=== PATIENT | male | born 1955 | race Caucasian/White ===

== ENCOUNTER 2019-09-19 21:19 | Inpatient (IN) | payer MEDICAID, OTHER ==
[~2019-09-19] VITALS: Ht 172.7 cm; Wt 63.0 kg
[~2019-09-19 21:19] MED LIST: NORPTMEDS CO
[2019-09-19 22:08] LABS: Eosinophils # (auto) 0 10 ^3/uL (0-0.8); White Blood Cell 10.8 10^3/uL (4.4-10.8)
[2019-09-19 22:10] LABS: Basophils # (auto) 0 10 ^3/uL (0-0.2); Basophils % (auto) 0.3 % (0.0-2.0); Hematocrit 50.6 % (41.0-53.0); Hemoglobin 15.8 g/dL (13.5-17.5); Lymphocytes % (auto) 9.6 % (10.0-50.0); Mean Corpuscular Hemoglobin 32.6 pg (28.0-32.0); Mean Corpuscular Hgb Conc. 31.3 g/dL (32.0-36.0); Mean Corpuscular Volume 104.3 fL (80.0-100.0); Monocytes # (auto) 1.6 10 ^3/uL (0-1.3); Monocytes % (auto) 14.6 % (0.0-12.0); Neutrophils # (auto) 8.1 10 ^3/uL (1.6-8.6); Neutrophils % (auto) 75.5 % (37.0-80.0); Platelet Count (auto) 159 10^3/uL (140-450); Red Blood Cells 4.85 10^6/uL (4.5-5.90); Red Cell Distribution Width 16.8 % (11.8-14.3)
[2019-09-19 22:25] LABS: Albumin 2.9 g/dL (3.4-5.0); BUN/Creatinine Ratio 10.8; Calcium 8.7 mg/dL (8.5-10.1); Magnesium 2.6 mg/dL (1.6-2.6); Potassium 4.5 mmol/L (3.5-5.1)
[2019-09-19 22:29] LABS: Salicylate < 1.7 mg/dL (2.8-20.0)
[2019-09-19 22:30] LABS: Bilirubin, Total 0.6 mg/dL (0.2-1.0); Total Protein 7.4 g/dL (6.4-8.2)
[2019-09-19 22:32] LABS: Acetaminophen < 2.0 ug/mL (10-30)
[2019-09-19 23:46] LABS: INR 1.13 (0.9-1.15); Partial Thromboplastin Time 31.2 sec (23.64-32.05)
[2019-09-19 23:57] LABS: Urine Amorphous Crystal FEW /hpf (None Seen); Urine Bacteria FEW /hpf (None Seen); Urine Blood 2+ /uL (Negative); Urine Hyaline Cast FEW /lpf (0 - 2); Urine Specific Gravity 1.009 (1.001-1.035); Urine WBC 3 /hpf (0 - 3)
[2019-09-20] MEDS ORDERED: SODIUM BICARBONATE 50ML VIAL 50 ML in SOD CHL 0.45% 1,000 ML IV ONE ×2
[2019-09-20 00:19] LABS: Amphetamine Screen, Urine NEGATIVE (NEGATIVE); Barbiturate Scree,Urine NEGATIVE (NEGATIVE); Benzodiazephine Screen, Urine NEGATIVE (NEGATIVE); Cannabinoid Screen, Urine NEGATIVE (NEGATIVE); Cocaine Screen, Urine NEGATIVE (NEGATIVE); Opiate Scree,Urine POSITIVE (NEGATIVE); Phencyclidine Screen, Urine NEGATIVE (NEGATIVE)
[2019-09-20] MEDS ORDERED: ENOXAPARIN SOD 30 MG/0.3 ML SYRINGE IV ONE (00:30)
[2019-09-20] MEDS ORDERED: SODIUM BICARBONATE 8.4 % INJ 50ML VIAL IV ONE ×3 (00:53)
[2019-09-20] MEDS ORDERED: SODIUM CHLORIDE 0.9% 1,000 ML IV ONE (01:00)
[2019-09-20] MEDS ORDERED: SODIUM CHLORIDE 0.9% 1,000 ML IV SCH (02:45)
[2019-09-20] MEDS ORDERED: ONDANSETRON HCL 4 MG/2 ML VIAL IV PRN (02:45)
[2019-09-20] MEDS ORDERED: NITROGLYCERIN 0.4 MG SL TAB SL PRN (03:00)
[2019-09-20] MEDS ORDERED: MORPHINE SULF INJ 2 MG/ML SYRINGE 1ML IV PRN (03:00)
[2019-09-20 03:16] LABS: Albumin 2.5 g/dL (3.4-5.0); Calcium 8.1 mg/dL (8.5-10.1); Potassium 4.6 mmol/L (3.5-5.1)
[2019-09-20 03:20] LABS: BUN/Creatinine Ratio 12.6; Bilirubin, Total 0.7 mg/dL (0.2-1.0); Total Protein 6.2 g/dL (6.4-8.2)
[2019-09-20] MEDS: ENOXAPARIN SOD 60 MG/0.6 ML SYRINGE SC SCH ×2 (03:32→15:45)
[2019-09-20] MEDS ORDERED: SODIUM CHLORIDE 0.9% 500 ML IV ONE (07:30)
--- NOTE | 2019-09-20 08:40 | NUR ---
Admit to [facility] Vadmitted to [facility] via jarrell on heddler tier, and portable 02. Patient transferred to bed, connected to unit monitoring and oxygen at 2L NC, and weighed by bedscale. Patient oriented to FADIA OBRIEN, primary RN, unit, room, bed, and unit policies regarding patient care and visiting hours. Patient with see draining clear yellow UOP. IVF of 0.45NS + 1amp Bicarb infusing at 50ml/hr. All questions and concerns addressed, patient verbalized understanding. VSS: 153/95, 105, 18, 94% on 2L NC, 99.1
[2019-09-20] MEDS: SODIUM CHLORIDE 0.9% 1,000 ML IV SCH (08:45)
[2019-09-20 09:30] VITALS: BP 153/95
[2019-09-20] MEDS: LACTULOSE 20Gm/30ML SOLN PO SCH (10:26)
[2019-09-20] MEDS: ASPirin 81 mg TAB PO SCH (10:26)
[2019-09-20] MEDS: PANTOPRAZOLE 40 MG TAB PO SCH (10:27)
[2019-09-20 11:45] VITALS: BP 151/82
--- NOTE | 2019-09-20 11:45 | NUR ---
neurophysiology tech at bedside.
--- NOTE | 2019-09-20 11:51 | NUR ---
Critical Lab Result: Troponin 6.670. Message left at [facility] for Dr Rubin.
[2019-09-20 15:45] VITALS: BP_SYST 140; BP_SYST 151; BP_DIAS 82
--- NOTE | 2019-09-20 17:15 | NUR ---
T/C from Dr Zafar. Orders received for labs. MD to see patient tomorrow.
--- NOTE | 2019-09-20 17:42 | NUR ---
T/C to patient's daughter, Shima Infante. Provided daughter password set up by patient per his request. Updated daughter on patient's plan of care, to include tomorrow's stress test and nephrology consult.
[2019-09-20 18:38] LABS: Protein, Urine 72.7 mg/dL (0.0-11.9)
[2019-09-20 18:42] LABS: Alcohol, Urine < 3.0 mg/dL (0-5); Amphetamine Screen, Urine NEGATIVE (NEGATIVE); Barbiturate Scree,Urine NEGATIVE (NEGATIVE); Benzodiazephine Screen, Urine NEGATIVE (NEGATIVE); Cannabinoid Screen, Urine NEGATIVE (NEGATIVE); Cocaine Screen, Urine NEGATIVE (NEGATIVE); Opiate Scree,Urine POSITIVE (NEGATIVE); Phencyclidine Screen, Urine NEGATIVE (NEGATIVE)
--- NOTE | 2019-09-20 18:56 | NUR ---
CLOSING SHIFT NOTE: Patient resting in bed, no s/s of distress. Patient remains connected to bedside monitor with alarms in place. Sitter 1:1 for safety due to suicide risk. Patient remains NPO. Plan for stress test tomorrow morning. Patient with IVF infusing to left AC #20 of NS @ 65ml/hr and 0.45NS + 1 amp BiCarb at 50ml/hr. Leigh draining jamin urine. Bed in lowest position, rails x2 up and call light within reach. Report to be given to CURTIS MCINTYRE.
[2019-09-20 19:58] VITALS: BP 154/78
--- NOTE | 2019-09-20 20:56 | NUR ---
RECEIVED PT ON SUPINE POSITION IN NO ACUTE RESP DISTREE AND NO C/O PAIN. ON SR WITHOUT ECTOPY. REPOSITIONED.. ORAL CARE DONE. HOB UP 45 DEGREE
--- NOTE | 2019-09-20 20:56 | NUR ---
ASHOK MCINTYRE [facility] GAVE ME REPORT
[2019-09-20] MEDS: ATORVASTATIN 20 MG TAB PO SCH (21:39)
--- NOTE | 2019-09-20 23:55 | NUR ---
BP [id number] WAS 179/86, AT 2350 BP-170/83, AND AT 2354-169/84. tHE HOSPITALIST WAS CALLED TO INFORM THE HIGH bP. hE IS ANXIOUS SINCE 1900
--- NOTE | 2019-09-20 23:58 | NUR ---
AT 2200, REMAINS AWAKE AND ANXIOUS. ON SR . NO C/O OF PAIN
[2019-09-21] VITALS (7 sets, daily range): BP systolic 129–180; BP diastolic 72–108
[2019-09-21] MEDS: SODIUM CHLORIDE 0.9% 1,000 ML IV SCH (00:04)
--- NOTE | 2019-09-21 00:54 | NUR ---
0015 ORTEGAnp CALLED AND IFORM PT ANXIETY AND REMAINS AWAKE AND bp WAS HIGH AND ORDERED TEMAZEPAM 15 PO NOW
[2019-09-21] MEDS ORDERED: TEMAZEPAM 15 MG CAP PO ONE (01:00)
[2019-09-21] MEDS ORDERED: TEMAZEPAM 15 MG CAP ONE (01:01)
--- NOTE | 2019-09-21 01:12 | NUR ---
AT 0101 TEMAZEPAM OE RESTORIL 15 GIVEN FOR INSOMNIA AND RESTLESSNESS
--- NOTE | 2019-09-21 01:54 | NUR ---
AT 0200 PT DESATURATES BECAUSE HE IS ASLEEP AND ALSO THE O2 IS OFF SO O2 PUT IT BACK
[2019-09-21] MEDS: ENOXAPARIN SOD 60 MG/0.6 ML SYRINGE SC SCH (03:10)
[2019-09-21 03:40] LABS: Basophils # (auto) 0 10 ^3/uL (0-0.2); Basophils % (auto) 0.2 % (0.0-2.0); Eosinophils # (auto) 0 10 ^3/uL (0-0.8); Eosinophils % (auto) 0.1 % (0.0-7.0); Hematocrit 36.4 % (41.0-53.0); Hemoglobin 12.5 g/dL (13.5-17.5); Lymphocytes # (auto) 1.4 10 ^3/uL (0.4-5.4); Lymphocytes % (auto) 24.7 % (10.0-50.0); Mean Corpuscular Hemoglobin 32.4 pg (28.0-32.0); Mean Corpuscular Hgb Conc. 34.3 g/dL (32.0-36.0); Mean Corpuscular Volume 94.7 fL (80.0-100.0); Monocytes # (auto) 0.8 10 ^3/uL (0-1.3); Monocytes % (auto) 14.2 % (0.0-12.0); Neutrophils # (auto) 3.4 10 ^3/uL (1.6-8.6); Neutrophils % (auto) 60.8 % (37.0-80.0); Nucleated Red Blood Cells % 0.4 %; Platelet Count (auto) 79 10^3/uL (140-450); Red Blood Cells 3.85 10^6/uL (4.5-5.90); Red Cell Distribution Width 14.5 % (11.8-14.3); White Blood Cell 5.7 10^3/uL (4.4-10.8)
[2019-09-21 03:58] LABS: Phosphorus 3.2 mg/dL (2.5-4.90); Uric Acid 10.8 mg/dL (3.5-7.2)
--- NOTE | 2019-09-21 05:24 | NUR ---
PT. SLEEPING QUOIETLY
--- NOTE | 2019-09-21 06:15 | NUR ---
SUICIDAL PRECAUTION. CLOSELY MONITORED
--- NOTE | 2019-09-21 07:30 | NUR ---
REPORT RECEIVED FROM TALENT ACQUISITION OPERATIONS MANAGER NURSE. PATIENT RESTING IN BED AT THIS TIME. RESPIRATIONS EVEN AND UNLABORED. NO SIGNS OF ACUTE DISTRESS NOTED. SITTER AT BEDSIDE FOR PATIENT SAFETY DUE TO SUICIDAL ATTEMPT. BED IN LOW POSITION, CALL LIGHT A IN REACH. WELL CONTINUE TO MONITOR.
[2019-09-21 07:44] LABS: Albumin 2.2 g/dL (3.4-5.0); Potassium 4.5 mmol/L (3.5-5.1)
[2019-09-21 07:48] LABS: BUN/Creatinine Ratio 25.5; Bilirubin, Total 0.8 mg/dL (0.2-1.0); Total Protein 5.3 g/dL (6.4-8.2)
[2019-09-21] MEDS ORDERED: ADENOSINE 54 MG in GIVE UN-DILUTED 0 ML IV ONE (08:30)
[2019-09-21 10:04] LABS: Hepatitis B Surface Antigen Negative (Negative)
[2019-09-21 10:05] LABS: Hepatitis C Antibody Positive (Negative)
--- NOTE | 2019-09-21 10:25 | NUR ---
LEFT MESSAGE FOR DR DAVIES TO INFORM OF PATIENTS INCREASED BLOOD PRESSURES SYSTOLICS IN THE 170-180'S. AWAITING CALL BACK.
--- NOTE | 2019-09-21 10:26 | NUR ---
PATIENT LEFT FOR CARDIOLITE VIA WHEELCHAIR CONNECTED TO PORTABLE MONITOR AND OXYGEN ACCOMPANIED BY RADIOLOGY NURSE.
--- NOTE | 2019-09-21 10:36 | NUR ---
SPOKE TO DR DAVIES ABOUT PATIENTS BLOOD PRESSURE. PER MD START PATIENT ON PROCARDIA 10MG PO TID PRN FOR SBP GREATER THAN 160.
[2019-09-21] MEDS ORDERED: NIFEdipine 10 MG CAP PO PRN (11:00)
[2019-09-21] MEDS ORDERED: ERGOCALCIFEROL 50,000 UNIT(1.25MG) CAP PO SCH (11:30)
--- NOTE | 2019-09-21 11:38 | NUR ---
PATIENT RETURNED FROM CARDIOLITE VIA WHEELCHAIR CONNECTED TO PORTABLE MONITOR AND OXYGEN. PATIENT PLACED ON BEDSIDE MONITOR BY RADIOLOGY NURSE AND SUPPLY CHAIN SPECIALIST WHO WAS COVERING PRIMARY NURSES LUNCH AT THE TIME OF PATIENT RETURN.
[2019-09-21] MEDS: LACTULOSE 20Gm/30ML SOLN PO SCH (12:45)
[2019-09-21] MEDS: PANTOPRAZOLE 40 MG TAB PO SCH (12:46)
[2019-09-21] MEDS: ASPirin 81 mg TAB PO SCH (12:46)
--- NOTE | 2019-09-21 12:46 | NUR ---
ADMINISTERED PROCARDIA PER MD ORDER FOR SBP GREATER THAN 160. PATIENTS CURRENT BLOOD PRESSURE 180/108. WILL CONTINUE TO MONITOR.
--- NOTE | 2019-09-21 12:50 | NUR ---
RHYTHM CHANGE PATIENT NOTED TO HAVE INCREASED HEART RATE IN 160-170'S IRREGULAR. EKG PERFORMED AND PATIENT NOTED TO BE IN A FIB RVR. PAGED DR DAVIES AWAITING CALL BACK.
--- NOTE | 2019-09-21 13:12 | NUR ---
SPOKE TO DR DAVIES ABOUT PATIENTS A FIB RVR. PER MD ADMINISTER DIGOXIN IVP X 2 DOSES OF 0.25MG. ONE NOW AND ONE DOSE 2 HOURS AFTER FIRST DOSE. ALL ORDERS NOTED IN CHART.
[2019-09-21] MEDS ORDERED: METOPROLOL TARTRATE 1MG/1ML-5ML VIAL IV ONE (13:15)
[2019-09-21] MEDS ORDERED: amLODIPine BESYLATE 5 MG TAB PO ONE (13:15)
[2019-09-21] MEDS ORDERED: DIGOXIN (250MCG/ML) 2 ML AMPULE IV ONE ×2 (13:15→15:30)
--- NOTE | 2019-09-21 13:15 | NUR ---
DR RESTREPO AT BEDSIDE TO ASSESS PATIENT AND DISCUSS PLAN OF CARE. AWARE OF DR SEGOVIA ORDERS FOR PATIENTS CURRENT HEART RATE. ALL ORDERS NOTED IN CHART FROM DR RESTREPO.
[2019-09-21] MEDS ORDERED: DIGOXIN (250MCG/ML) 2 ML AMPULE ONE (13:18)
--- NOTE | 2019-09-21 13:30 | NUR ---
REASSESSED PATIENT BLOOD PRESSURE, CURRENTLY 116/59. WILL CONTINUE TO MONITOR.
--- NOTE | 2019-09-21 14:14 | NUR ---
DR DAVIES AT BEDSIDE TO ASSESS PATIENT AND DISCUSS PLAN OF CARE. PER MD DO NOT ADMINISTER METOPROLOL IVP AT THIS TIME. START PATIENT ON PO METOPROLOL NOTED IN CHART AND THEN GIVE SECOND DOSE OF DIGOXIN IVP PREVIOUSLY ORDERED. PER MD STRESS TEST NEGATIVE.
--- NOTE | 2019-09-21 15:44 | NUR ---
PER PHARMACIST SPOKE WITH DR RESTREPO ABOUT PATIENTS PLATELET LEVEL AND LOVENOX ORDER. PER MD GIVE 1 FINAL DOSE TODAY. ALL ORDERS NOTED BY PHARMACY.
[2019-09-21] MEDS ORDERED: ENOXAPARIN SOD 60 MG/0.6 ML SYRINGE SC ONE ×2 (15:45→22:00)
[2019-09-21] MEDS: ATORVASTATIN 20 MG TAB PO SCH (21:53)
[2019-09-21] MEDS: METOPROLOL TARTRATE 50 MG TAB PO SCH (21:53)
[2019-09-21] MEDS ORDERED: METOPROLOL TARTRATE 25 MG TAB PO SCH (22:00)
[2019-09-21] MEDS ORDERED: ENOXAPARIN SOD 60 MG/0.6 ML SYRINGE SC SCH (22:00)
[2019-09-22 03:22] LABS: Basophils # (auto) 0 10 ^3/uL (0-0.2); Basophils % (auto) 0.8 % (0.0-2.0); Eosinophils # (auto) 0 10 ^3/uL (0-0.8); Eosinophils % (auto) 0.4 % (0.0-7.0); Hematocrit 42.6 % (41.0-53.0); Hemoglobin 14.3 g/dL (13.5-17.5); Lymphocytes % (auto) 18.2 % (10.0-50.0); Mean Corpuscular Hgb Conc. 33.6 g/dL (32.0-36.0); Mean Corpuscular Volume 95.1 fL (80.0-100.0); Monocytes # (auto) 0.5 10 ^3/uL (0-1.3); Monocytes % (auto) 8.9 % (0.0-12.0); Neutrophils # (auto) 3.9 10 ^3/uL (1.6-8.6); Neutrophils % (auto) 71.7 % (37.0-80.0); Nucleated Red Blood Cells % 0.3 %; Platelet Count (auto) 88 10^3/uL (140-450); Red Blood Cells 4.48 10^6/uL (4.5-5.90); Red Cell Distribution Width 14.6 % (11.8-14.3); White Blood Cell 5.5 10^3/uL (4.4-10.8)
[2019-09-22 03:44] LABS: Albumin 2.2 g/dL (3.4-5.0); Calcium 7.8 mg/dL (8.5-10.1); Potassium 3.7 mmol/L (3.5-5.1)
[2019-09-22 03:47] LABS: Bilirubin, Total 1.5 mg/dL (0.2-1.0); Total Protein 5.9 g/dL (6.4-8.2)
[2019-09-22 04:00] VITALS: BP 142/94
[2019-09-22 07:40] VITALS: BP 137/93
[2019-09-22] MEDS ORDERED: ASPirin 81 mg TAB PO SCH (10:00)
[2019-09-22] MEDS ORDERED: amLODIPine BESYLATE 5 MG TAB PO SCH (10:00)
--- NOTE | 2019-09-22 10:00 | NUR ---
Held scheduled Amlodipine and Metoprolol secondary to BP 106/69, Will contact Dr. Rubin
[2019-09-22] MEDS: LACTULOSE 20Gm/30ML SOLN PO SCH (10:27)
[2019-09-22] MEDS: PANTOPRAZOLE 40 MG TAB PO SCH (10:28)
[2019-09-22] MEDS: METOPROLOL TARTRATE 50 MG TAB PO SCH (10:30)
--- NOTE | 2019-09-22 11:36 | NUR ---
Resumed care at 0725, orders reviewed and ongoing assessments being done. Being treated for multiple problems as well with suicide ideation. Upon arrival awake and interacting appropriately and able to make needs known. Can participate with self care. One to one sitter at bedside secondary to suicide ideation. Interacting appropriately and not opening up regarding above. Status post stress test and remains in AFIB with a control rate in the 80's.
[2019-09-22 11:40] VITALS: BP 116/77
--- NOTE | 2019-09-22 12:00 | NUR ---
Dr. Lemus rounded at 1200. Discussed condition and plan of care.
--- NOTE | 2019-09-22 14:21 | NUR ---
Nutrition Assessment Notes please see attached link fo complete assessment Est Energy needs BW 64 [id number] kcals (25-30 kcal/kgBW), Est Protein needs: 64-70 gms/day (1.1-1.1 gm/kgBW r/t elev RFT severe hypoalb). Will continue to monitor and reassess prn. Addendum: 09/22/19 at [address] Amended: Links added.
[2019-09-22 15:50] VITALS: BP 124/88
--- NOTE | 2019-09-22 15:58 | NUR ---
Resting quietly in bed and one to one sitter remains at bedside. Reviewed plan of care regarding consult for TELE Psych. Agreed and TELE Psych arranged and completed.
--- NOTE | 2019-09-22 16:17 | NUR ---
Contacted Dr. Rubin and made him aware of medications that were held this am. Reviewed medications and discussed plan of care. Orders obtained.
[2019-09-22] MEDS ORDERED: CHOLECALCIFEROL (VITD3) 1,000IU=25mCg TAB PO ONE (16:45)
--- NOTE | 2019-09-22 17:11 | NUR ---
Assessment Patient is a 64-year-old male who is alert and oriented. Prior to admission patient lived home alone and function independently. Patient informed me he can care for his own ADLs. Patient stated he does not need any medical equipment now. Per patient he receives SSI with an amount of [id number]. Per patient he will return home to his prior living arrangements post discharge and he will need a taxi voucher. Advised patient there is a social service consult for heavy ETOH use and mixed pills while drinking. Offered patient resources for substance abused. Patient accepted resources. Patient informed he does not have health insurance. Informed patient he will be refer to Jordon who will assist with [employer]. Informed patient he has a right to participate in all discharge planning. Patient verbalized understanding and agreed to discharge plan home. Informed JAYME Saab regarding no insurance. JAYME Saab informed me per Jordon [facility] is secure. Addendum: 09/22/19 at 1711 by SANDY INGRAM Amended: Links added.
--- NOTE | 2019-09-22 17:46 | NUR ---
Dr. Lemus placed orders at 1645, okay to transfer to TELE floor. Ordered abdominal US. Will be done tomorrow since patient has to be NPO for 8 hours and ate lunch.
[2019-09-22] MEDS ORDERED: RIVAROXABAN 20 MG TAB PO SCH (18:00)
--- NOTE | 2019-09-22 18:22 | NUR ---
In bed eating dinner in no acute distress. No behavioral changes, has been interacting appropriately with no emotional outburst. Remains in AFIB with a control rate.
--- NOTE | 2019-09-22 20:00 | NUR ---
Received report from Petty MCINTYRE, pt stable at time of report. Report called to Elida MCINTYRE. Will transfer pt to [facility] when tele box made available.
[2019-09-22] MEDS: AMIODARONE HCL 200 MG TAB PO SCH (20:55)
[2019-09-22] MEDS: ATORVASTATIN 20 MG TAB PO SCH (20:56)
--- NOTE | 2019-09-22 20:59 | NUR ---
Pt transferred to Room 285 via bed by Tatiana MCINTYRE. Pt alert and oriented at time of transfer. Pt placed on portable tele box and hooked up to O2 when situated in room. All belongings and toiletries transferred with patient. Notified RN pt is now in room. Care endorsed.
--- NOTE | 2019-09-22 21:00 | NUR ---
Assumed care patient sitting up in bed, awake and alert, oriented x 4. on 2L via NC with even and unlabored respirations, no s/s of distress. patient turns independently in bed. patient reports using a walker at home to ambulate. PIV right AC intact and patent. Leigh intact and draining to gravity. Sitter at bedside. will continue care.
[2019-09-22 22:00] VITALS: BP 141/97
[2019-09-23 05:00] VITALS: BP 118/79
--- NOTE | 2019-09-23 06:55 | NUR ---
Closing Note patient resting in bed with oxygen on, even and unlabored respirations, noted chest rise and fall. No s/s of distress noted. Bed in lowest locked position with side rails up x 2 and call light within reach. Endorsed care to day shift RN.
--- NOTE | 2019-09-23 07:30 | NUR ---
Opening Shift Note Assumed care of patient, awake and alert. No S/S of distress/SOB or pain. Instructed on POC and to call for assist PRN, will continue to monitor for changes Q1hr and PRN. Sitter at bedside.
[2019-09-23 07:33] LABS: Albumin 2.1 g/dL (3.4-5.0); Calcium 7.9 mg/dL (8.5-10.1); Potassium 3.5 mmol/L (3.5-5.1)
[2019-09-23 07:38] LABS: BUN/Creatinine Ratio 28.1; Bilirubin, Total 1.5 mg/dL (0.2-1.0); Total Protein 6.2 g/dL (6.4-8.2)
[2019-09-23 09:00] VITALS: BP 129/91
[2019-09-23] MEDS ORDERED: CHOLECALCIFEROL (VITD3) 1,000IU=25mCg TAB PO SCH (10:00)
[2019-09-23] MEDS: PANTOPRAZOLE 40 MG TAB PO SCH (10:18)
[2019-09-23] MEDS: ASPirin 81 mg TAB PO SCH (10:19)
[2019-09-23] MEDS: LACTULOSE 20Gm/30ML SOLN PO SCH (10:20)
[2019-09-23] MEDS: AMIODARONE HCL 200 MG TAB PO SCH (10:20)
[2019-09-23 13:00] VITALS: BP 118/72
--- NOTE | 2019-09-23 14:02 | NUR ---
Dr. Ng in to see patient as hospitalist. She reviewed the tele/psych report.
[2019-09-23 17:00] VITALS: BP 150/87
--- NOTE | 2019-09-23 18:46 | NUR ---
See catheter dc'd Order to discontinue see catheter. See dc'd with clean technique following deflation of balloon. Patient tolerated well with no complaints of pain. Continue care. Urine sent for urine culture.
[2019-09-23 20:00] VITALS: BP 106/69
[2019-09-23] MEDS: cefTRIAXone 1GM/50ML D5W 50 ML IV SCH (21:18)
[2019-09-23] MEDS: ATORVASTATIN 20 MG TAB PO SCH (21:19)
[2019-09-23 22:00] VITALS: BP 133/79
--- NOTE | 2019-09-24 00:12 | NUR ---
PT RESTING WITH EYES CLOSED RESP EVEN AND UNLAB.
--- NOTE | 2019-09-24 00:24 | NUR ---
SITTER AT BEDSIDE.
[2019-09-24 05:00] VITALS: BP 143/79
[2019-09-24 06:44] LABS: Calcium 7.7 mg/dL (8.5-10.1); Potassium 3.4 mmol/L (3.5-5.1)
[2019-09-24 06:50] LABS: Albumin 2.1 g/dL (3.4-5.0); BUN/Creatinine Ratio 31.4; Bilirubin, Total 1.2 mg/dL (0.2-1.0); Total Protein 5.7 g/dL (6.4-8.2)
--- NOTE | 2019-09-24 06:57 | NUR ---
PT RESTED WELL THROUGHOUT THE NIGHT;DID NOT EXPRESS ANY SUICIDAL IDEATION;SITTER AT BEDSIDE.
--- NOTE | 2019-09-24 07:30 | NUR ---
Opening Shift Note RECEIVED REPORT FORM NOC RN. Assumed care of patient, awake and alert. No S/S of distress/SOB or pain. BED IN LOWEST, LOCKED POSITION WITH SIDERAILS UP x2 AND CALL LIGHT WITHIN REACH AND SITTER AT BEDSIDE. Instructed on POC and to call for assist PRN, will continue to monitor for changes Q1hr and PRN.
[2019-09-24] MEDS ORDERED: POTASSIUM EFFERVESENT TAB 25 MEQ PO ONE (07:45)
[2019-09-24 08:31] VITALS: BP 121/81
--- NOTE | 2019-09-24 09:20 | NUR ---
DR. RESTREPO AT BEDSIDE.
[2019-09-24] MEDS: cefTRIAXone 1GM/50ML D5W 50 ML IV SCH ×2 (09:28→22:05)
[2019-09-24] MEDS: ASPirin 81 mg TAB PO SCH (11:33)
[2019-09-24] MEDS: AMIODARONE HCL 200 MG TAB PO SCH (11:33)
[2019-09-24] MEDS: LACTULOSE 20Gm/30ML SOLN PO SCH (11:33)
[2019-09-24] MEDS: PANTOPRAZOLE 40 MG TAB PO SCH (11:33)
[2019-09-24 13:00] VITALS: BP 147/83
--- NOTE | 2019-09-24 13:11 | NUR ---
PLACED CONSULT WITH ON-CALL GI, DR. Reinier WAY.
[2019-09-24 17:00] VITALS: BP 169/87
--- NOTE | 2019-09-24 18:05 | NUR ---
PAGED DR. RESTREPO.
--- NOTE | 2019-09-24 19:10 | NUR ---
Opening Shift Note Received report from MIGUELINA Haas and assumed care of patient, awake and alert. No S/S of distress/SOB or pain. Instructed to call for assist if needed and verbalized understanding. Will continue to monitor .
[2019-09-24 21:00] VITALS: BP 162/91
[2019-09-24] MEDS: ATORVASTATIN 20 MG TAB PO SCH (22:05)
--- NOTE | 2019-09-24 22:25 | NUR ---
Called/paged called re: BP 162/91. Waiting for call back. Continue care.
--- NOTE | 2019-09-24 22:31 | NUR ---
returned call returned call, updated on patient status and reason for call, no new orders received.To re-check BP after 2 hours if patient is awake.Continue care.
[2019-09-25 05:00] VITALS: BP 162/90
[2019-09-25 06:11] LABS: Albumin 2.2 g/dL (3.4-5.0); Calcium 8.1 mg/dL (8.5-10.1); Potassium 3.6 mmol/L (3.5-5.1)
[2019-09-25 06:14] LABS: Bilirubin, Total 0.9 mg/dL (0.2-1.0); Total Protein 5.8 g/dL (6.4-8.2)
--- NOTE | 2019-09-25 07:15 | NUR ---
Opening Shift Note: Assumed care of patient. Patient asleep at this time. No S/S of distress/SOB or pain. Bed in lowest locked position, side rails up x 2, call light within reach. Sitter at bedside for patient safety. Patient instructed on POC and to call for assist PRN, will continue to monitor for changes Q1hr and PRN.
[2019-09-25 08:51] VITALS: BP 130/93
[2019-09-25] MEDS ORDERED: amLODIPine BESYLATE 5 MG TAB PO ONE (09:45)
[2019-09-25] MEDS: ASPirin 81 mg TAB PO SCH (09:46)
[2019-09-25] MEDS: cefTRIAXone 1GM/50ML D5W 50 ML IV SCH ×2 (09:46→22:59)
[2019-09-25] MEDS: PANTOPRAZOLE 40 MG TAB PO SCH (09:47)
[2019-09-25] MEDS: LACTULOSE 20Gm/30ML SOLN PO SCH (09:47)
[2019-09-25] MEDS: AMIODARONE HCL 200 MG TAB PO SCH (09:48)
[2019-09-25] MEDS: amLODIPine BESYLATE 5 MG TAB PO SCH (09:55)
[2019-09-25 12:38] VITALS: BP 147/92
--- NOTE | 2019-09-25 12:50 | NUR ---
Nutrition Follow-up Notes Wt.: 63.0 kg Pt was sleeping with no family by bedside. pt active tele psych conuslt. pt is currently on cardiac diet with adequate PO of 100% x 4 per RN doc Est Energy needs BW 64 [id number] kcals (25-30 kcal/kgBW), Est Protein needs: 64-70 gms/day (1.1-1.1 gm/kgBW r/t elev RFT severe hypoalb). Will continue to monitor and reassess prn. Labs:BUN 27 H, ALB 2.2 L, CA 8.1 L, NEENA/LT 198/153 H Skin: Christiano scale 19 low risk amputation per RN doc. refer to WC notes for details GI: Pt had 1 BM yesterday per data consultant. PES: Altered nutrition related lab values r/t current medical condition aeb elev RFT severe hypoalb hypocalcemia, hyperbil Will continue to monitor Po intake, skin status, pertinent labs and weight trend. F/u in 3-5 days. Rec.: 1.) consider prostat 1 packet bid as RFT improve.m2) continue assistance with meals. 3) continue current plan of care
--- NOTE | 2019-09-25 14:45 | NUR ---
TELE PSYCH CONSULT COMPLETED. AWAITING REPORT.
[2019-09-25 16:35] VITALS: BP 139/82
--- NOTE | 2019-09-25 16:47 | NUR ---
re-assessment Per consult verify insurance for out patient hep c treatment. Patient has no insurance. Per Jordon Gimenez patients [employer] is secure. It can take 6 weeks for [facility] to be active. Addendum: 09/25/19 at 1649 by Katiana Miller Amended: Links added.
--- NOTE | 2019-09-25 17:55 | NUR ---
CALLED FOR REPORT FROM PSYCH EVAL. AWAITING REPORT.
--- NOTE | 2019-09-25 18:21 | NUR ---
RECEIVED REPORT. PLACED IN CHART.
--- NOTE | 2019-09-25 18:56 | NUR ---
CLOSING NOTE: Patient resting in bed. No S/S of pain, distress or SOB. sitter at bedside for patient safety. Care endorsed to NOC RN
--- NOTE | 2019-09-25 19:30 | NUR ---
Opening Shift Note Assumed care of patient, awake and alert oriented x4. No S/S of distress/SOB or pain noted, sitter is at the bedside. Bed is in lowest locked position with bed rails up x2 and call light is within reach. Instructed on POC and to call for assist PRN.
--- NOTE | 2019-09-25 20:00 | NUR ---
Patient refused Iv change: Patient refused IV change at this time. Notified and educated patient about IV change policy. Patient refusing IV change stating "Im probably going to go home tomorrow anyway. I dont need it." IV is patent, no irritation or redness to the site noted.
[2019-09-25 22:00] VITALS: BP 135/64
[2019-09-25] MEDS: ATORVASTATIN 20 MG TAB PO SCH (22:00)
[2019-09-26 05:00] VITALS: BP 142/82
[2019-09-26 06:04] LABS: Basophils # (auto) 0 10 ^3/uL (0-0.2); Basophils % (auto) 0.7 % (0.0-2.0); Eosinophils # (auto) 0.1 10 ^3/uL (0-0.8); Eosinophils % (auto) 1.2 % (0.0-7.0); Hematocrit 43.1 % (41.0-53.0); Hemoglobin 14.6 g/dL (13.5-17.5); Lymphocytes # (auto) 1.1 10 ^3/uL (0.4-5.4); Lymphocytes % (auto) 22.3 % (10.0-50.0); Mean Corpuscular Hemoglobin 32.5 pg (28.0-32.0); Mean Corpuscular Volume 95.7 fL (80.0-100.0); Monocytes # (auto) 0.8 10 ^3/uL (0-1.3); Monocytes % (auto) 16.5 % (0.0-12.0); Neutrophils # (auto) 2.8 10 ^3/uL (1.6-8.6); Neutrophils % (auto) 59.3 % (37.0-80.0); Nucleated Red Blood Cells % 0.2 %; Platelet Count (auto) 92 10^3/uL (140-450); Red Cell Distribution Width 14.8 % (11.8-14.3); White Blood Cell 4.8 10^3/uL (4.4-10.8)
[2019-09-26 06:28] LABS: Albumin 2.3 g/dL (3.4-5.0); Calcium 7.9 mg/dL (8.5-10.1); Potassium 3.8 mmol/L (3.5-5.1)
[2019-09-26 06:33] LABS: BUN/Creatinine Ratio 23.9; Total Protein 5.9 g/dL (6.4-8.2)
--- NOTE | 2019-09-26 07:30 | NUR ---
Opening Note Assumed patient care from NOC RN. Patient currently sitting up in bed, no signs of distress at this time, respirations are even and unlabored. Patient refusing new IV. Safety precautions are in place, sitter is at bedside, will continue to monitor.
[2019-09-26 09:00] VITALS: BP 145/88
[2019-09-26] MEDS: cefTRIAXone 1GM/50ML D5W 50 ML IV SCH (09:17)
[2019-09-26] MEDS: ASPirin 81 mg TAB PO SCH (09:17)
[2019-09-26] MEDS: AMIODARONE HCL 200 MG TAB PO SCH (09:18)
[2019-09-26] MEDS: PANTOPRAZOLE 40 MG TAB PO SCH (09:18)
[2019-09-26] MEDS: amLODIPine BESYLATE 5 MG TAB PO SCH (09:19)
[2019-09-26] MEDS: LACTULOSE 20Gm/30ML SOLN PO SCH (09:25)
--- NOTE | 2019-09-26 11:06 | NUR ---
Family Would Like to Speak with MD Spoke with daughterShima, password confirmed. Requesting to speak with Dr. Lemus regarding patient's plan of care/discharge plan, states she was told yesterday, that patient would be a possible discharge today and would like information on whether the patient can safely return home. Per daughter, she and her children moved in to patient's house after mother/Pt and has been caring for the patient since. States all alcohol and medication has been locked away and that she has spoken with patient regarding changes made in the home i.e. no more alcohol. Will notify .
--- NOTE | 2019-09-26 12:06 | NUR ---
at bedside Dr. Lemus at bedside discussing plan of care and discharge plan with patient.
[2019-09-26 13:00] VITALS: BP 160/90
[2019-09-26] MEDS ORDERED: ERGO1CAP23 PO (14:27)
[2019-09-26] MEDS ORDERED: ASPI81CH43 PO (14:27)
[2019-09-26] MEDS ORDERED: ATOR20TA50 PO (14:27)
[2019-09-26] MEDS ORDERED: AML5T PO (14:27)
[2019-09-26] MEDS ORDERED: PANT40T PO (14:27)
[2019-09-26 16:47] VITALS: BP 145/88
[2019-09-26 17:00] VITALS: BP 121/69
--- NOTE | 2019-09-26 19:28 | NUR ---
Discharge Discharge instructions given as ordered. Encourage to follow up with PMD as instructed. All questions and concerns addressed. Patient verbalized understanding. Medication reconciliation form completed and copy given to patient. IV removed with catheter intact, pressure dressing applied. Telemetry unit returned to ICU. Patient taken to vehicle via wheelchair with all personal belongings, accompanied by staff. Prescriptions given to patient's daughter. No distress noted at time of departure. Addendum: 09/26/19 at 1928 by MARISSA BARAHONA RN RN Wrong Time Correct Time: 1909
== END 2019-09-26 19:10 | disposition home or self-care (01) | DRG 280 ==
LOC: EDBD 21:19 → ER 21:21 → TELE 21:22 → DOU IN ICU 09-20 08:23 → TELE-WESTW 09-22 21:00
PROVIDERS: ADMIT Nurse Practitioner; ATTEND Internal Medicine Nephrology
DX: K70.10 Alcoholic hepatitis without ascites (principal); N17.0 Acute kidney failure with tubular necrosis; I21.A1 Myocardial infarction type 2; G92 Toxic encephalopathy; I13.0 Hypertensive heart and chronic kidney disease with heart failure and stage 1 through stage 4 chronic kidney disease, or unspecified chronic kidney disease; E72.20 Disorder of urea cycle metabolism, unspecified; I95.9 Hypotension, unspecified; E87.2 Acidosis; I50.9 Heart failure, unspecified; D69.6 Thrombocytopenia, unspecified; R45.851 Suicidal ideations; F10.229 Alcohol dependence with intoxication, unspecified; N18.9 Chronic kidney disease, unspecified; B19.20 Unspecified viral hepatitis C without hepatic coma; E78.00 Pure hypercholesterolemia, unspecified; I48.91 Unspecified atrial fibrillation; R31.29 Other microscopic hematuria; F32.9 Major depressive disorder, single episode, unspecified; K21.9 Gastro-esophageal reflux disease without esophagitis; M19.90 Unspecified osteoarthritis, unspecified site; J43.9 Emphysema, unspecified; Z79.899 Other long term (current) drug therapy; Y90.9 Presence of alcohol in blood, level not specified
CPT/HCPCS: 36415; 36600; 70450; 71045; 71250; 72125; 74176; 76705; 76775; 78452; 80053; 80307; 80320; 80329; 81001; 82140; 82306; 82570; 82805; 83735; 83880; 83970; 84100; 84156; 84300; 84484; 84550; 85025; 85610; 85730; 86160; 86431; 86803; 87040; 87086; 87340; 93005; 93017; 93306; G0378; J0153; J0696

== ENCOUNTER 2023-04-05 10:12 | Emergency (ER) | payer MEDICARE, MEDICAID ==
[~2023-04-05] VITALS: Ht 177.8 cm; Wt 56.8 kg
[~2023-04-05 10:12] MED LIST changes: +AML5T PO; +ASPI81CH43 PO; +ATOR20TA50 PO; +ERGO1CAP23 PO; +PANT40T PO
[2023-04-05 11:29] LABS: Urine Bacteria NONE SEEN /hpf (None Seen); Urine Blood 3+ /uL (Negative); Urine Clarity HAZY (Clear); Urine Mucus FEW (None Seen); Urine Protein, UAD 1+ (Negative); Urine Specific Gravity 1.022 (1.001-1.035); Urine WBC 12 /hpf (0 - 3)
[2023-04-05 11:30] LABS: Urine Color Red (Yellow)
[2023-04-05] MEDS ORDERED: CIPR-173 PO (11:37)
[2023-04-05] MEDS ORDERED: CIPROFLOXACIN HCL 500 MG TAB PO ONE (11:45)
[2023-04-05 13:10] VITALS: BP 155/86; PULSE 84; RESP 48; TEMP 98.8; O2SAT 96
== END 2023-04-05 13:11 | disposition home or self-care (01) ==
LOC: ER 10:12
DX: N39.0 Urinary tract infection, site not specified (principal); I10 Essential (primary) hypertension; E78.5 Hyperlipidemia, unspecified; F17.210 Nicotine dependence, cigarettes, uncomplicated; Z79.82 Long term (current) use of aspirin; Z79.899 Other long term (current) drug therapy
CPT/HCPCS: 81001